=== PATIENT | male | born 1995 | race Two or more races ===

== ENCOUNTER 2020-10-03 09:40 | Emergency (ER) | payer OTHER, SELFPAY ==
[2020-10-03 09:53] VITALS: BP 134/79; PULSE 102; RESP 16; TEMP 36.9; O2SAT 97; BMI 27.3
--- NOTE | 2020-10-03 10:13 | ED.URI ---
HPI - URI/Sore Throat General Chief Complaint: Upper Respiratory Symptoms Stated Complaint: FLU LIKE Time Seen by Provider: 10/03/20 09:51 Source: patient Mode of arrival: ambulatory Limitations: no limitations History of Present Illness HPI Narrative: 25yoM c No Sig PMHx presenting to the ED c c/o fevers up to 100.3, dry cough and body aches since Wednesday. Reports he works at [employer]. No known COVID or flu like exposure. Denies recent travel. Denies any other symptoms complaints or concerns at this time. Related Data Previous Rx's Medication Instructions Recorded acetaminophen [Tylenol] 650 mg PO Q6H PRN #10 tab 10/03/20 azithromycin See Rx Instructions PO .COMPLEX #3 10/03/20 tab cyclobenzaprine 10 mg PO TID PRN #10 tab 10/03/20 Allergies Allergy/AdvReac Type Severity Reaction Status Date / Time SEAFOOD Allergy Unknown ANAPHYLAXIS Uncoded 08/08/20 17:27 Review of Systems Review of Systems: Constitutional : + Fever, + Chills, + fatigue, + Malaise ENT/Mouth : No sore throat, No runny nose Eyes: No Discharge Cardiovascular : No Chest Pain, No SOB Respiratory : + Cough, No Sputum, No Wheezing, No Smoke Exposure, No Dyspnea Gastrointestinal : No Nausea, No Vomiting, No Diarrhea Genitourinary : No irregular bleeding, No Dysuria, No Urinary Frequency, No Hematuria, No Urinary Incontinence, No Urgency, No Flank Pain, Musculoskeletal : + Myalgia Skin : No rash Neuro : No Headache Yes all other systems are reviewed and are negative [facility] Past Medical History Attestation statement: The following information was validated with the patient. Social History Social History Advance Directives: No Advance Directives Information Provided: Yes Physical Exam Vital Signs: Vital Signs: Last Vital Signs Temp 98.4 F 10/03/20 09:53 Pulse 102 H 10/03/20 09:53 Resp 16 10/03/20 09:53 BP 134/79 10/03/20 09:53 Pulse Ox 97 10/03/20 09:53 Body Mass Index 27.3 vital signs have been reviewed as normal and appeared to be correct. Blood pressure normal. Heart rate tachycardic. Respiration rate normal. Temperature normal. Oxygen saturation normal. Appearance: Alert. Oriented X3. No acute distress. Head: Normal external exam. Eyes: PERRLA. EOMI. Conjunctiva and sclera normal. Eyelids normal. ENT: EAC normal. TM's Normal. Pharynx normal. Uvula midline. Moist mucous membranes. . Neck: Normal inspection. Neck supple. FROM. Thyroid Normal. No meningeal signs. CVS: Normal heart rate and rhythm. Heart sound normal. No murmurs noted. Pulses normal throughout. Respiratory: No respiratory distress. Painless inspiration. Breath sounds normal. No wheezes/rales/rhonchi noted. Chest nontender. No accessory muscle usage noted or decreased air movement noted. Back: Full range of motion noted. Skin: Skin warm and dry. Normal skin color. Normal skin turgor. No rashes/lesions/lacerations noted. Extremities: Extremities exhibit normal range of motion. Extremities nontender. Neuro: Oriented X 3. No motor deficit. No sensory deficit. Reflexes normal. MDM - URI/Sore Throat Medical Records Attestation: I reviewed the patient's medical records. Discharge Plan Discharge Clinical Impression: Upper respiratory infection Patient Disposition: Home, Self-Care Instructions: Upper Respiratory Infection (ED), COVID-19 (Coronavirus Disease 2019) (ED) Additional Instructions: Based on your symptoms and history we have sent a COVID-19. Although your RESULT IS PENDING at this time. RESULTS should return within 72 hours. At this time you will be contacted with either NEGATIVE OR POSITIVE results. -Please wait until we contact you for your results. At this time you will be okay for discharge. Please plan for self quarantine for up to 14 days. Do not expose yourself to others. You may not go to work. If testing does come back negative you may return to activities as long as you are no longer having any symptoms for at least 3 days. Please continue to follow cold instructions and wash your hands frequently. You may take Tylenol as directed on the bottle for pain or fever. Patient seen in the emergency department on 10/03/2020 and should be excused from work until negative test results AND until 72 hours without any symptoms AND at least 10 days have passed since symptoms first appeared or since last exposure to COVID-19 positive patient CDC Guidelines for home isolation: - Stay away from others - WEAR A MASK if you are sick AND STAY HOME - Cover your mouth and nose with a tissue when you cough or sneeze. Dispose of tissues in a lined trash can and wash your hands immediately with soap and water for at least 20 seconds. If soap and water are not available, clean hands with alcohol-based hand shipbuilding draftsperson that contains at least 60% alcohol. - Clean your hands often with soap and water for at least 20 seconds - Avoid touching your eyes, nose and mouth with unwashed hands - Do not share dishes, drinking glasses, cups, eating utensils, towels, or bedding with other people in your home. After using these items, wash them thoroughly with soap and water or put in the hydraulic operator. - Clean high-touch surfaces in your isolation area ( sick room and bathroom) every day; let a caregiver clean and disinfect high-touch surfaces in other areas of the home. Clean the area or item with soap and water or another detergent if it is dirty. Then, use a household disinfectant. - Limit contact with pets and animals: If you must care for a pet, wash your hands before and after interacting with them). Prescriptions: New azithromycin 500 mg tablet See Rx Instructions PO .COMPLEX Qty: 3 RF: 0 acetaminophen [Tylenol] 325 mg tablet 650 mg PO Q6H PRN (Reason: fever or pain) Qty: 10 RF: 0 cyclobenzaprine 10 mg tablet 10 mg PO TID PRN (Reason: muscle spasm) Qty: 10 RF: 0 Referrals: [facility] [Primary Care Provider] - 2 days Stand Alone Forms: Work/School Release Print Language: Romanian
[2020-10-03] MEDS: Acetaminophen 325 MG TABLET 975 MG PO (10:20)
[2020-10-03 11:02] LABS: Influenza A PCR NEGATIVE (Negative); Influenza B PCR NEGATIVE (Negative); Resp Syncy Virus RNA Qual PCR NEGATIVE (Negative); SARS COV2 PCR INHOUSE NEGATIVE (Negative)
== END 2020-10-03 10:34 | disposition home or self-care (01) ==
PROVIDERS: Physician Assistant Medical; Emergency Provider Emergency Medicine
DX: J06.9 Acute upper respiratory infection, unspecified (principal); R50.9 Fever, unspecified; Z79.899 Other long term (current) drug therapy; Z20.828 Contact with and (suspected) exposure to other viral communicable diseases
CPT/HCPCS: 0241U; 99283

== ENCOUNTER 2020-12-17 09:42 | Outpatient (REF) | payer OTHER, SELFPAY ==
[2020-12-17 10:32] LABS: Anion Gap 11 (12-20); Blood Urea Nitrogen 15 mg/dL (9-16); Calcium 8.6 mg/dL (8.4-10.2); Carbon Dioxide 28 mmol/L (22-29); Chloride 106 mmol/L (96-108); Estimated Glomerular Filt Rate > 60; Glucose Random 106 mg/dL (60-115); Sodium 141 mmol/L (135-145)
== END 2020-12-17 09:43 | disposition home or self-care (01) ==
LOC: HO.10HDL 09:42
PROVIDERS: Visit Provider Internal Medicine
DX: J45.909 Unspecified asthma, uncomplicated (principal); Z83.3 Family history of diabetes mellitus
CPT/HCPCS: 36415; 80048

== ENCOUNTER 2021-09-21 15:29 | Emergency (ER) | payer OTHER, SELFPAY ==
--- NOTE | ~2021-09-21 | CT_ITS ---
EXAMINATION: CT ABDOMEN AND PELVIS WITHOUT CONTRAST CLINICAL INFORMATION: Left flank pain. Hematuria. Evaluate for a renal stone. COMPARISON: Most recent CT abdomen/pelvis dated 02/10/2020. TECHNIQUE: Multidetector volumetric imaging was performed from the superior aspect of the liver through the pubic symphysis. Sagittal and coronal reformatted images were obtained on the technologist's workstation. This CT examination was performed using dose optimization techniques as appropriate, variously including the following: *Automated exposure control. *Adjustment of mA and/or kV according to patient size (this includes techniques or standardized protocols for targeted exams where dose is matched to indication/reason for exam; i.e. extremities or head). *Use of iterative reconstruction technique. DLP: 583 mGy-cm FINDINGS: LUNG BASES: The visualized lung bases are unremarkable. LIVER, GALLBLADDER, AND BILIARY TREE: The liver is normal in size, shape, and attenuation. No focal hepatic lesion or biliary ductal dilatation is present. The gallbladder is unremarkable with no evidence of radiopaque gallstones, gallbladder wall thickening, or obvious pericholecystic inflammatory changes. PANCREAS: Unremarkable. SPLEEN: Unremarkable. ADRENAL GLANDS: Unremarkable. KIDNEYS AND URETERS: The kidneys are normal in size, shape, and attenuation. There is a distal left ureteral stone measuring up to 0.5 x 0.4 cm and approximately 645 Hounsfield units. This is located just proximal to the left ureterovesicular junction. There is mild proximal hydroureteronephrosis with adjacent periureteral and perinephric stranding. There are multiple additional bilateral renal stones measuring up to 0.3 cm within the upper pole of the left kidney and 0.1 cm within the right kidney. No right-sided ureteral stone. No right-sided hydronephrosis or hydroureter. BLADDER: Unremarkable. GASTROINTESTINAL TRACT: There are a few scattered sigmoid colon diverticula. No evidence of acute diverticulitis. No bowel wall thickening or associated inflammatory change. No small or large bowel obstruction. Unremarkable appendix. PERITONEAL CAVITY: No intra-abdominal free air or free fluid. No intra-abdominal mass or organized fluid collection/abscess formation. ABDOMINAL WALL: No significant hernia is appreciated. LYMPH NODES: No significant lymphadenopathy. VASCULAR: Unremarkable. PELVIC VISCERA: The prostate and seminal vesicles are unremarkable. OSSEOUS STRUCTURES: Unremarkable. CT/CT abdomen pelvis wo con IMPRESSION: 1. Distal left ureteral stone just proximal to the ureterovesicular junction measuring up to 0.5 cm. Mild proximal hydroureteronephrosis with adjacent periureteral and perinephric stranding. 2. Multiple additional bilateral renal stones. No right-sided ureteral stone. No right-sided hydronephrosis or hydroureter. Unremarkable urinary bladder. 3. Minimal diverticulosis without evidence of acute diverticulitis. No small or large bowel obstruction. Unremarkable appendix.
[2021-09-21 16:04] VITALS: BP 131/80; PULSE 90; RESP 18; TEMP 36.8; O2SAT 98; BMI 27.3
[2021-09-21 16:31] LABS: MANUAL DIFF FLAG NO
[2021-09-21 16:34] LABS: Basophils Percent Auto 0.3 % (0-2); Eosinophils Absolute Auto 0.1 X10*3/uL (0.0-0.4); Hematocrit 40.4 % (42.0-52.0); Hemoglobin 13.5 g/dl (14.0-18.0); Imm Gran Abs Auto 0.01 X10*3/uL (0.00-0.03); Imm Gran Pct Auto 0.2 % (0.0-0.4); Lymphocytes Absolute Auto 1.5 X10*3/uL (1.2-4.9); Lymphocytes Percent Auto 25.9 % (20-40); Mean Corpuscular HGB Conc 33.4 g/dl (31.0-36.0); Mean Corpuscular Hemoglobin 29.2 pg (27.0-33.0); Mean Corpuscular Volume 87.3 fL (80.0-98.0); Mean Platelet Volume 9.6 fL (9.4-12.4); Monocytes Absolute Auto 0.4 X10*3/uL (0.1-1.2); Monocytes Percent Auto 7.3 % (2-11); Neutrophils Absolute Auto 3.84 x10*3/uL (2.0-8.3); Neutrophils Percent Auto 65.3 % (45-73); Platelet Count 235 X10*3/uL (160-400); Red Blood Count 4.63 X10*6/uL (4.60-5.80); Red Cell Distribution Width 13.1 % (11.0-16.0); White Blood Count 5.9 X10*3/uL (4.8-10.8)
[2021-09-21 16:36] LABS: Appearance Urine CLEAR; Color Urine YELLOW; Glucose Urine UA NEG (NEG); Leukocyte Esterase Urine NEG (NEG); Nitrite Urine NEG (NEG); Specific Gravity - Urine 1.015 (1.005-1.025); UACC Culture Trigger NO; Urine Blood 2+ (NEG); Urine Ketones NEG (NEG); Urine Protein NEG (NEG-TRACE)
[2021-09-21 16:47] LABS: Mucus Urine 2+ /LPF; Squamous Epithelial Cell Urine TRACE /LPF; WBC Urine 0-2 /HPF (0-4)
[2021-09-21 17:09] LABS: Alanine Aminotransferase 20 U/L (0-40); Albumin Level 4.3 g/dL (3.5-5.0); Alkaline Phosphatase 53 U/L (39-117); Anion Gap 14 (12-20); Aspartate Amino Transferase 17 U/L (5-37); Bilirubin Total 0.3 mg/dL (0.0-1.0); Blood Urea Nitrogen 10 mg/dL (9-16); Calcium 8.9 mg/dL (8.4-10.2); Carbon Dioxide 26 mmol/L (22-29); Chloride 107 mmol/L (96-108); Creatinine Clr Calc Pharmacy 100.2; Estimated Glomerular Filt Rate > 60; Glucose Random 100 mg/dL (60-115); Potassium 3.8 mmol/L (3.3-5.1); Sodium 143 mmol/L (135-145); Total Protein 7.1 g/dL (6.5-8.0)
--- NOTE | 2021-09-21 18:26 | ED_ITS ---
HPI - Abdominal Pain General Chief Complaint: Abdominal Pain Stated Complaint: abd pain radiating to the back Time Seen by Provider: 09/21/21 18:25 Source: patient Mode of arrival: ambulatory Limitations: no limitations History of Present Illness HPI narrative: 26-year-old male came in for evaluation of left flank pain. Pain started this morning, localized to the left Flattening area radiates down to the left groin area, pain is intermittent, moderate 7/10, associated with his dysuria and frequency urination, no relieving factor, no aggravating factor, patient had similar pain in the past and was told was a kidney stone. Patient declines any nausea, or vomiting. Related Data Previous Rx's Medication Instructions Recorded acetaminophen 325 mg tablet 650 mg PO Q6H PRN #10 tab 10/03/20 (Tylenol) azithromycin 500 mg tablet See Rx Instructions PO .COMPLEX #3 10/03/20 tab cyclobenzaprine 10 mg tablet 10 mg PO TID PRN #10 tab 10/03/20 oxycodone 5 mg tablet 5 mg PO TID PRN #10 tab 09/21/21 Allergies Allergy/AdvReac Type Severity Reaction Status Date / Time SEAFOOD Allergy Unknown ANAPHYLAXIS Uncoded 08/08/20 17:27 Review of Systems Review of Systems All other systems are reviewed and are negative Constitutional: Reports as per HPI and Reports no additional constitutional complaints Eyes: Reports as per HPI and Reports no additional eye complaints Reports system reviewed and no additional complaints, except as documented Cardiovascular: Reports as per HPI and Reports no additional cardiovascular complaints Respiratory: Reports as per HPI and Reports no additional respiratory complaints Gastrointestinal: Reports as per HPI and Reports no additional gastrointestinal complaints Genitourinary: Reports no additional female genitourinary complaints Musculoskeletal: Reports no additional musculoskeletal complaints Skin/Breast: Reports system reviewed and no additional complaints, except as docu Psychiatric: Reports no additional psychiatric complaints Endocrine: Reports no additional endocrine complaints Hematologic/Lymphatic: Reports no additional hematologic/lymphatic complaints Allergic/Immunologic: Reports no additional allergic/immunologic complaints Reports system reviewed and no additional complaints, except as documented and Reports Abnormal speech present Physical Exam Vital Signs: Vital Signs: Last Vital Signs Temp 98.2 F 09/21/21 16:04 Pulse 90 09/21/21 16:04 Resp 18 09/21/21 16:04 BP 131/80 09/21/21 16:04 Pulse Ox 98 09/21/21 16:04 Body Mass Index 27.3 Vital signs have been reviewed as appeared to be correct. Blood pressure n ormal. Heart rate normal. Respiration rate normal. Temperature normal. Oxygen saturation normal. Appearance: Alert. Oriented X3. No acute distress. Head: Normal external exam. Normocephalic. Atraumatic. No Neal signs noted. No raccoon eyes noted Eyes: PERRLA. EOMI. Conjunctiva and sclera normal. Eyelids normal. ENT: TM's Normal. Pharynx normal. Uvula midline. Moist mucous membranes. No trismus noted. No drooling noted. No muffled voice noted. Neck: Normal inspection. Neck supple. FROM. No adenopathy. Thyroid Normal. No meningeal signs. No neck mass noted. CVS: Normal heart rate and rhythm. Heart sound normal. No murmurs noted. Pulses normal throughout. Respiratory: No respiratory distress. Painless inspiration. Breath sounds normal. No wheezes/rales/rhonchi noted. Chest nontender. No accessory muscle usage noted or decreased air movement noted. Abdomen: Soft and nontender. Bowel sounds normal in all 4 quadrants. No distention noted. No organomegaly noted. No visible injury noted. Back: Left CVA tenderness. Full range of motion noted. Skin: Skin warm and dry. Normal skin color. Normal skin turgor. No rashes/lesions/lacerations noted. Extremities: No lower extremity edema. Extremities exhibit normal range of motion. Extremities nontender. Neuro: Oriented X 3. Cranial nerve exam: II-XII are grossly intact No motor deficit. No sensory deficit. Reflexes normal. Course Course Course Narrative: Assessment and plan. [age] year old male came in with left flank pain, physical exam and CT of the abdomen showed 5 mm stone just proximal to the left UVJ with hydronephrosis, patient was instructed to drink plenty of fluid intake pain medication and follow-up with Dr. Stevens as outpatient. MDM - Abdominal Pain Lab Data Attestation: I reviewed the patient's lab results. Result diagrams: 09/21/21 16:27 09/21/21 16:27 Labs: Lab Results 09/21/21 09/21/21 09/21/21 Range/Units 16:27 16:27 16:27 WBC 5.9 (4.8-10.8) X10*3/uL RBC 4.63 (4.60-5.80) X10*6/uL Hgb 13.5 L (14.0-18.0) g/dl Hct 40.4 L (42.0-52.0) % MCV 87.3 (80.0-98.0) fL MCH 29.2 (27.0-33.0) pg MCHC 33.4 (31.0-36.0) g/dl RDW 13.1 (11.0-16.0) % Plt Count 235 (160-400) X10*3/uL MPV 9.6 (9.4-12.4) fL Immature Gran % (Auto) 0.2 (0.0-0.4) % Neut % (Auto) 65.3 (45-73) % Lymph % (Auto) 25.9 (20-40) % [place] % (Auto) 7.3 (2-11) % Eos % (Auto) 1.0 (0-4) % Baso % (Auto) 0.3 (0-2) % Lymph # (Auto) 1.5 (1.2-4.9) X10*3/uL [place] # (Auto) 0.4 (0.1-1.2) X10*3/uL Eos # (Auto) 0.1 (0.0-0.4) X10*3/uL Baso # (Auto) 0.0 (0.0-0.2) X10*3/uL Abs Immat Gran (auto) 0.01 (0.00-0.03) X10*3/uL Absolute Neuts (auto) 3.84 (2.0-8.3) x10*3/uL Absolute Nucleated RBC 0.000 (0.0-0.012) X10*3/uL Nucleated RBC % (auto) 0.0 (0.0-0.2) /100WBC Sodium 143 (135-145) mmol/L Potassium 3.8 (3.3-5.1) mmol/L Chloride 107 (96-108) mmol/L Carbon Dioxide 26 (22-29) mmol/L Anion Gap 14 (12-20) BUN 10 (9-16) mg/dL Creatinine 1.08 (0.5-1.4) mg/dL Estim Creat Clear Calc 100.2 Estimated GFR > 60 Random Glucose 100 (60-115) mg/dL Calcium 8.9 (8.4-10.2) mg/dL Total Bilirubin 0.3 (0.0-1.0) mg/dL AST 17 (5-37) U/L ALT 20 (0-40) U/L Alkaline Phosphatase 53 (39-117) U/L Total Protein 7.1 (6.5-8.0) g/dL Albumin 4.3 (3.5-5.0) g/dL Urine Color YELLOW Urine Appearance CLEAR Urine pH 6.0 (5.0-8.0) Ur Specific [place] 1.015 (1.005-1.025) Urine Protein NEG (NEG-TRACE) MG/DL Urine Glucose (UA) NEG (NEG) MG/DL Urine Ketones NEG (NEG) MG/DL Urine Blood 2+ H (NEG) Urine Nitrite NEG (NEG) Ur Leukocyte Esterase NEG (NEG) Urine RBC 5-9 H (0) /HPF Urine WBC 0-2 (0-4) /HPF Ur Squamous Epith Cells TRACE /LPF Urine Bacteria NONE /LPF Urine Mucus 2+ /LPF Imaging Data CT scan - abdomen: Radiologist's impression: 1. Distal left ureteral stone just proximal to the ureterovesicular junction measuring up to 0.5 cm. Mild proximal hydroureteronephrosis with adjacent periureteral and perinephric stranding. ? 2. Multiple additional bilateral renal stones. No right-sided ureteral stone. No right-sided hydronephrosis or hydroureter. Unremarkable urinary bladder. ? 3. Minimal diverticulosis without evidence of acute diverticulitis. No small or large bowel obstruction. Unremarkable appendix.? Discharge Plan Discharge Clinical Impression: Abdominal pain, Kidney stone on left side, Left ureteral stone Patient Disposition: Home, Self-Care Instructions: Ureteral Stones (ED) Prescriptions: New oxycodone 5 mg tablet 5 mg PO TID PRN (Reason: pain) Qty: 10 RF: 0 No Action azithromycin 500 mg tablet See Rx Instructions PO .COMPLEX Qty: 3 RF: 0 acetaminophen [Tylenol] 325 mg tablet 650 mg PO Q6H PRN (Reason: fever or pain) Qty: 10 RF: 0 cyclobenzaprine 10 mg tablet 10 mg PO TID PRN (Reason: muscle spasm) Qty: 10 RF: 0 Referrals: Eduard Stevens MD [Physician] - 2 days [facility] Social History Social History Advance Directives: No Advance Directives Information Provided: No
[2021-09-21 19:49] VITALS: BP 132/69; PULSE 66; RESP 16; TEMP 36.6; O2SAT 96
== END 2021-09-21 20:53 | disposition home or self-care (01) ==
PROVIDERS: Emergency Provider Emergency Medicine; PCP Internal Medicine
DX: N13.2 Hydronephrosis with renal and ureteral calculous obstruction (principal)
CPT/HCPCS: 36415; 74176; 80053; 81001; 85025; 99284

== ENCOUNTER 2022-06-15 17:12 | Emergency (ER) | payer OTHER, SELFPAY ==
--- NOTE | ~2022-06-15 | CT_ITS ---
EXAMINATION: CT ABDOMEN AND PELVIS WITHOUT CONTRAST CLINICAL INFORMATION: Right-sided flank pain COMPARISON: CT abdomen pelvis 09/21/2021 TECHNIQUE: Multidetector volumetric imaging was performed from the superior aspect of the liver through the pubic symphysis. Sagittal and coronal reformatted images were obtained on the technologist's workstation. This CT examination was performed using dose optimization techniques as appropriate, variously including the following: *Automated exposure control *Adjustment of mA and/or kV according to patient size (this includes techniques or standardized protocols for targeted exams where dose is matched to indication/reason for exam; i.e. extremities or head) *Use of iterative reconstruction technique DLP: 676 mGy-cm FINDINGS: LUNG BASES: The visualized lung bases are unremarkable. LIVER, GALLBLADDER, AND BILIARY TREE: The liver is normal in size, shape, and attenuation. No focal hepatic lesion or biliary ductal dilatation is present. The gallbladder is unremarkable with no evidence of radiopaque gallstones, gallbladder wall thickening, or obvious pericholecystic inflammatory changes. PANCREAS: Unremarkable. SPLEEN: Unremarkable. ADRENAL GLANDS: Unremarkable. KIDNEYS AND URETERS: Right: There may be a tiny punctate barely perceptible right nonobstructing renal calculus seen (4:295). No other right-sided calculi are seen. No right-sided hydronephrosis. No right renal masses. Left kidney: Again seen are multiple intrarenal left calculi with at least 4 calculi the largest measuring about 4 mm in size. No left-sided hydronephrosis is present. No left-sided renal masses are seen. BLADDER: Unremarkable. GASTROINTESTINAL TRACT: The small and large bowel are unremarkable. The appendix is unremarkable. ABDOMINAL WALL: No significant hernia is appreciated. LYMPH NODES: Normal. VASCULAR: Unremarkable. The right renal vein is retroaortic. PELVIC VISCERA: Prostate and seminal vesicles unremarkable OSSEOUS STRUCTURES: Unremarkable. CT/CT abdomen pelvis wo con IMPRESSION: 1. An etiology for the patient's right flank pain has not been found. No right-sided renal calculi or hydronephrosis is seen. 2. Left-sided renal calculi are present. The previously noted left-sided hydronephrosis caused by the distal ureteral calculus is no longer present. Fleischner guidelines were followed.
[2022-06-15 17:24] VITALS: BP 118/81; PULSE 76; RESP 18; TEMP 37.1; O2SAT 97; BMI 30.4
[2022-06-15 17:34] LABS: MANUAL DIFF FLAG NO
[2022-06-15 17:36] LABS: Basophils Percent Auto 0.2 % (0-2); Eosinophils Percent Auto 0.8 % (0-4); Hematocrit 40.2 % (42.0-52.0); Hemoglobin 13.4 g/dl (14.0-18.0); Imm Gran Abs Auto 0.02 X10*3/uL (0.00-0.03); Imm Gran Pct Auto 0.4 % (0.0-0.4); Lymphocytes Absolute Auto 1.7 X10*3/uL (1.2-4.9); Mean Corpuscular HGB Conc 33.3 g/dl (31.0-36.0); Mean Corpuscular Hemoglobin 28.9 pg (27.0-33.0); Mean Corpuscular Volume 86.8 fL (80.0-98.0); Mean Platelet Volume 9.7 fL (9.4-12.4); Monocytes Absolute Auto 0.3 X10*3/uL (0.1-1.2); Monocytes Percent Auto 6.7 % (2-11); Neutrophils Absolute Auto 2.7 x10*3/uL (2.0-8.3); Neutrophils Percent Auto 56.9 % (45-73); Platelet Count 261 X10*3/uL (160-400); Red Blood Count 4.63 X10*6/uL (4.60-5.80); Red Cell Distribution Width 12.8 % (11.0-16.0); White Blood Count 4.8 X10*3/uL (4.8-10.8)
[2022-06-15 17:53] LABS: Alanine Aminotransferase 23 U/L (0-40); Albumin Level 4.2 g/dL (3.5-5.0); Alkaline Phosphatase 55 U/L (39-117); Anion Gap 11 (12-20); Aspartate Amino Transferase 16 U/L (5-37); Bilirubin Direct < 0.2 mg/dL (0.0-0.5); Bilirubin Total 0.4 mg/dL (0.0-1.0); Blood Urea Nitrogen 14 mg/dL (9-16); Calcium 9.1 mg/dL (8.4-10.2); Carbon Dioxide 28 mmol/L (22-29); Chloride 105 mmol/L (96-108); Creatinine Clr Calc Pharmacy 122.4; Estimated Glomerular Filt Rate > 60; Glucose Random 139 mg/dL (60-115); Potassium 3.6 mmol/L (3.3-5.1); Sodium 140 mmol/L (135-145); Total Protein 7.4 g/dL (6.5-8.0)
--- NOTE | 2022-06-15 20:58 | ED.GENADULT ---
HPI - General Adult General Chief complaint: Abdominal Pain Stated complaint: R side abd pain Time Seen by Provider: 06/15/22 20:57 Source: patient Mode of arrival: ambulatory Limitations: no limitations History of Present Illness HPI narrative: Patient is a 26 year old male presenting to the emergency department today with right sided flank pain. Patient states that he has had intermittent right sided flank pain. Patient states that he has a history of kidney stones and it feels a lot like that. Patient denies any current dizziness, lightheadedness, abdominal pain, nausea, vomiting, fever, chills, blurry vision, double vision, loss of vision, chest pain, difficulty breathing, shortness of breath, back pain, night sweats, pain with urination, increased urinary frequency, increased urinary urgency, blood in his urine or stool, syncope or a near syncopal episode, recent trauma or falls, bowel incontinence, bladder incontinence, bowel retention, bladder retention, or any other complaints at this time. Onset (ago): day(s) (1) Location: abdomen Severity: mild Severity scale (1-10): 2 Pain Consistency: intermittent Relieving factors: none Exacerbating factors: none Associated symptoms: denies other symptoms Treatments prior to arrival: none Related Data Previous Rx's Medication Instructions Recorded acetaminophen 325 mg tablet 650 mg PO Q6H PRN fever or pain 10/03/20 (Tylenol) #10 tabs azithromycin 500 mg tablet See Rx Instructions PO .COMPLEX #3 10/03/20 tabs cyclobenzaprine 10 mg tablet 10 mg PO TID PRN muscle spasm #10 10/03/20 tabs oxycodone 5 mg tablet 5 mg PO TID PRN pain #10 tabs 09/21/21 oxycodone-acetaminophen 5 mg-325 1 tab PO TID PRN pain #14 tabs 09/21/21 mg tablet (Percocet) prednisone 20 mg tablet 20 mg PO BID #10 tabs 09/21/21 tamsulosin 0.4 mg capsule (Flomax) 0.4 mg PO DAILY #5 caps 09/21/21 Allergies Allergy/AdvReac Type Severity Reaction Status Date / Time SEAFOOD Allergy Unknown ANAPHYLAXIS Uncoded 08/08/20 17:27 Review of Systems Constitutional: Constitutional: Reports no additional constitutional complaints, Denies chills, Denies fever(s) and Denies night sweats Eyes: Eyes: Reports no additional eye complaints, Denies blurry vision, Denies change in vision, Denies diplopia, Denies eye discharge, Denies loss of vision and Denies eye pain ENT: Denies dizziness Cardiovascular: Cardiovascular: Reports no additional cardiovascular complaints, Denies chest pain, Denies lightheadedness, Denies Loss of Consciousness and Denies dyspnea Respiratory: Respiratory: Reports no additional respiratory complaints and Denies dyspnea Gastrointestinal: Gastrointestinal: Reports no additional gastrointestinal complaints, Reports abdominal pain (right flank), Denies melena, Denies hematochezia, Denies change in bowel habits and Denies change in stool character Genitourinary: Genitourinary: Reports no additional male genitourinary complaints, Denies hematuria, Denies oliguria, Denies difficulty urinating, Denies dysuria, Denies urinary frequency, Denies urinary hesitancy, Denies urinary incontinence and Denies urinary urgency Musculoskeletal: Musculoskeletal: Reports no additional musculoskeletal complaints, Denies numbness and Denies tingling Neurologic: Denies dizziness, Denies loss of vision, Denies numbness and Denies tingling Psychiatric: Psychiatric: Reports no additional psychiatric complaints Endocrine: Endocrine: Reports no additional endocrine complaints Hematologic/Lymphatic: Hematologic/Lymphatic: Reports no additional hematologic/lymphatic complaints Allergic/Immunologic: Allergic/Immunologic: Reports no additional allergic/immunologic complaints PMFSH Past Medical History Attestation statement: The following information was validated with the patient. Source: old records reviewed Social History Social History Advance Directives: No Advance Directives Information Provided: No Physical Exam ED Vital Signs: Vital Signs - 24 hr 06/15/22 17:24 06/15/22 21:06 Temperature 98.7 F 98.1 F Pulse Rate 76 76 Respiratory Rate 18 16 Blood Pressure 118/81 128/87 Pulse Oximetry 97 98 Oxygen Delivery Method Room Air Room Air BMI result Body Mass Index 30.4 Const General: cooperative, no acute distress, alert and awake Nutritional Appearance: well nourished Orientation/consciousness: patient oriented x3 Limitations: no limitations HENMT Head: Yes normal to inspection and Yes atraumatic Ears: hearing grossly normal bilaterally and external ears normal General nose exam: Normal external nose present, no nasal discharge noted and no epistaxis Face and sinus: Yes normal facial exam, No abrasion and No laceration Mouth: Normal oral and palatal mucosa present, no drooling and no muffled voice Eyes General: appearance normal, both eyes and all related structures Periorbital: periorbital findings normal Eyelids: Yes eyelids normal Conjunctivae: conjunctivae normal Pupils: Equal, round and reactive pupils present EOM: EOMs intact bilaterally Neck Neck: Yes normal visual inspection, Yes full ROM and Yes no lymphadenopathy Chest Chest palpation & inspection: normal inspection of the chest Resp Effort & Inspection: normal respiratory effort and able to speak in complete sentences Auscultation: clear to auscultation bilaterally Cardio Rate: regular rate Rhythm: regular rhythm GI Inspection: Yes normal to inspection Palpation (GI): Soft to palpation, not firm, nontender, no guarding and not rigid General: Yes no CVA tenderness Back/Spine/Pelvis Back: no CVA tenderness Neuro General: patient oriented x3 and moves all extremities Cranial nerves: Yes Equal, round and reactive pupils present Cognition (Neuro): normal cognition Motor exam (neuro): 5/5 motor strength present throughout Sensory Exam: Normal double simultaneous stimulation for sensation Coordination: [id number] test normal Extrem General: Yes normal to inspection, Yes full ROM and Yes capillary refill normal Psych Appearance: grossly normal Mental Status: mental status grossly normal Affect: normal affect Attitude: cooperative Thought process: Normal thought process present Thought content: Normal thought content present Insight: Good insight present (Psych) Medical Decision Making MDM Narrative Medical decision making narrative: Patient is a 26 year old male presenting to the emergency department today with intermittent right flank pain. Patient's physical exam was unremarkable. Patient's blood work was unremarkable. Patient's urine showed no acute process. Patient's CT abdomen showed no acute process. I explained my physical exam findings as well as all test results to the patient. I answered all questions asked by the patient. I stressed the importance of the patient taking his medication as prescribed. I stressed the importance of the patient following up with his primary care provider. I stressed the importance of the patient returning to the emergency department immediately if his symptoms were to worsen or if he were to develop any dizziness, shortness of breath, difficulty breathing, chest pain, blurry vision, loss of vision, nausea, vomiting, abdominal pain, fever, chills, back pain, or any other complaints. Patient verbalized agreement and understanding with this treatment plan and discharge. Differential Diagnosis Differential Diagnosis: renal calculi Medical Records Medical records reviewed: Yes I reviewed the patient's medical records. Lab Data Lab results reviewed: Yes I reviewed the patient's lab results. Result diagrams: 06/15/22 17:30 06/15/22 17:30 Labs: Lab Results 06/15/22 06/15/22 06/15/22 Range/Units 17:30 17:30 21:08 WBC 4.8 (4.8-10.8) X10*3/uL RBC 4.63 (4.60-5.80) X10*6/uL Hgb 13.4 L (14.0-18.0) g/dl Hct 40.2 L (42.0-52.0) % MCV 86.8 (80.0-98.0) fL MCH 28.9 (27.0-33.0) pg MCHC 33.3 (31.0-36.0) g/dl RDW 12.8 (11.0-16.0) % Plt Count 261 (160-400) X10*3/uL MPV 9.7 (9.4-12.4) fL Immature Gran % (Auto) 0.4 (0.0-0.4) % Neut % (Auto) 56.9 (45-73) % Lymph % (Auto) 35.0 (20-40) % [place] % (Auto) 6.7 (2-11) % Eos % (Auto) 0.8 (0-4) % Baso % (Auto) 0.2 (0-2) % Lymph # (Auto) 1.7 (1.2-4.9) X10*3/uL [place] # (Auto) 0.3 (0.1-1.2) X10*3/uL Eos # (Auto) 0.0 (0.0-0.4) X10*3/uL Baso # (Auto) 0.0 (0.0-0.2) X10*3/uL Abs Immat Gran (auto) 0.02 (0.00-0.03) X10*3/uL Absolute Neuts (auto) 2.7 (2.0-8.3) x10*3/uL Absolute Nucleated RBC 0.000 (0.0-0.012) X10*3/uL Nucleated RBC % (auto) 0.0 (0.0-0.2) /100WBC Sodium 140 (135-145) mmol/L Potassium 3.6 (3.3-5.1) mmol/L Chloride 105 (96-108) mmol/L Carbon Dioxide 28 (22-29) mmol/L Anion Gap 11 L (12-20) BUN 14 (9-16) mg/dL Creatinine 1.00 (0.5-1.4) mg/dL Estim Creat Clear Calc 122.4 Estimated GFR > 60 Random Glucose 139 H D (60-115) mg/dL Calcium 9.1 (8.4-10.2) mg/dL Total Bilirubin 0.4 (0.0-1.0) mg/dL Direct Bilirubin < 0.2 (0.0-0.5) mg/dL AST 16 (5-37) U/L ALT 23 (0-40) U/L Alkaline Phosphatase 55 (39-117) U/L Total Protein 7.4 (6.5-8.0) g/dL Albumin 4.2 (3.5-5.0) g/dL Urine Color YELLOW Urine Appearance CLEAR Urine pH 6.0 (5.0-8.0) Ur Specific [place] 1.025 (1.005-1.025) Urine Protein NEG (NEG-TRACE) MG/DL Urine Glucose (UA) NEG (NEG) MG/DL Urine Ketones NEG (NEG) MG/DL Urine Blood TRACE (NEG) Urine Nitrite NEG (NEG) Ur Leukocyte Esterase NEG (NEG) Urine RBC 0-2 (0) /HPF Urine WBC 0 (0-4) /HPF Ur Squamous Epith Cells NONE /LPF Urine Bacteria TRACE /LPF Imaging Data CT scan - abdomen: Attestation: I personally reviewed and interpreted this imaging study as follows: My impression: No acute process. Radiologist's impression: EXAMINATION: CT ABDOMEN AND PELVIS WITHOUT CONTRAST? CLINICAL INFORMATION: Right-sided flank pain? COMPARISON: CT abdomen pelvis 09/21/2021? TECHNIQUE: Multidetector volumetric imaging was performed from the superior aspect of the liver through the pubic symphysis. Sagittal and coronal reformatted images were obtained on the technologist's workstation.? This CT examination was performed using dose optimization techniques as appropriate, variously including the following: *Automated exposure control *Adjustment of mA and/or kV according to patient size (this includes techniques or standardized protocols for targeted exams where dose is matched to indication/reason for exam; i.e. extremities or head) *Use of iterative reconstruction technique DLP: 676 mGy-cm FINDINGS: LUNG BASES: The visualized lung bases are unremarkable.? LIVER, GALLBLADDER, AND BILIARY TREE: The liver is normal in size, shape, and attenuation. No focal hepatic lesion or biliary ductal dilatation is present. The gallbladder is unremarkable with no evidence of radiopaque gallstones, gallbladder wall thickening, or obvious pericholecystic inflammatory changes.? PANCREAS: Unremarkable.? SPLEEN: Unremarkable.? ADRENAL GLANDS: Unremarkable.? KIDNEYS AND URETERS: Right: There may be a tiny punctate barely perceptible right nonobstructing renal calculus seen (4:295). No other right-sided calculi are seen. No right-sided hydronephrosis. No right renal masses. Left kidney: Again seen are multiple intrarenal left calculi with at least 4 calculi the largest measuring about 4 mm in size. No left-sided hydronephrosis is present. No left-sided renal masses are seen. BLADDER: Unremarkable.? GASTROINTESTINAL TRACT: The small and large bowel are unremarkable. The appendix is unremarkable.? ABDOMINAL WALL: No significant hernia is appreciated.? LYMPH NODES: Normal. VASCULAR: Unremarkable. The right renal vein is retroaortic. PELVIC VISCERA: Prostate and seminal vesicles unremarkable? OSSEOUS STRUCTURES: Unremarkable.? CT/CT abdomen pelvis wo con IMPRESSION: 1.? An etiology for the patient's right flank pain has not been found. No right-sided renal calculi or hydronephrosis is seen. 2.? Left-sided renal calculi are present. The previously noted left-sided hydronephrosis caused by the distal ureteral calculus is no longer present.? ? Fleischner guidelines were followed. Dictated By: Skyler Saucedo MD Signed By: Electronically signed by Skyler Saucedo MD 06/15/22 0196 Discharge Plan Discharge Clinical Impression: Acute flank pain Patient Disposition: Home, Self-Care Instructions: Flank Pain (ED) Additional Instructions: Follow up with your primary care provider and a urologist. Return to the emergency department immediately if your symptoms worsen or if you develop any dizziness, shortness of breath, difficulty breathing, chest pain, blurry vision, loss of vision, nausea, vomiting, abdominal pain, fever, chills, back pain, or any other complaints. Prescriptions: No Action azithromycin 500 mg tablet See Rx Instructions PO .COMPLEX Qty: 3 0RF Rx Instructions: take 500 mg today (day 1), then 250 mg for 4 days (days 2-5) acetaminophen [Tylenol] 325 mg tablet 650 mg PO Q6H PRN (Reason: fever or pain) Qty: 10 0RF cyclobenzaprine 10 mg tablet 10 mg PO TID PRN (Reason: muscle spasm) Qty: 10 0RF oxycodone 5 mg tablet 5 mg PO TID PRN (Reason: pain) Qty: 10 0RF oxycodone-acetaminophen [Percocet] 5-325 mg tablet 1 tab PO TID PRN (Reason: pain) Qty: 14 0RF prednisone 20 mg tablet 20 mg PO BID Qty: 10 0RF tamsulosin [Flomax] 0.4 mg capsule 0.4 mg PO DAILY Qty: 5 0RF [place] [facility] [place] (Call to establish and follow up with a primary care provider. If you already have one, please follow up with them. ) [facility] [place]Provider Group] (Call to establish and follow up with a primary care provider. If you already have one, please follow up with them. ) [facility] [place]Provider Group] (Call to establish and follow up with a primary care provider. If you already have one, please follow up with them. ) Eduard Stevens MD [Physician] - Stand Alone Forms: Work/School Release Interventions: ED Discharge Assessment Last Done: 06/16/22 00:08 Discharge Date/Time: 06/16/22 00:10 Print Language: Thai
[2022-06-15 21:06] VITALS: BP 128/87; PULSE 76; RESP 16; TEMP 36.7; O2SAT 98
[2022-06-15 21:16] LABS: Appearance Urine CLEAR; Color Urine YELLOW; Glucose Urine UA NEG (NEG); Leukocyte Esterase Urine NEG (NEG); Nitrite Urine NEG (NEG); Specific Gravity - Urine 1.025 (1.005-1.025); UACC Culture Trigger NO; Urine Blood TRACE (NEG); Urine Ketones NEG (NEG); Urine Protein NEG (NEG-TRACE)
[2022-06-15 21:25] LABS: Bacteria Urine TRACE /LPF; RBC Urine 0-2 /HPF (0); WBC Urine 0 /HPF (0-4)
--- NOTE | 2022-06-16 00:08 | PC.NURSE ---
I assumed nursing care of Ramsey on his arrival to bed 1. I am discharging him at the same time I a meeting him or the first time. He denies pain. he appears well. He is alert, oriented x 3. he verbalized an understanding of all DC orders and ambulated out of the ED independently and with steady gait.
== END 2022-06-16 00:10 | disposition home or self-care (01) ==
PROVIDERS: Emergency Provider Emergency Medicine; PCP Pediatrics
DX: R10.9 Unspecified abdominal pain (principal); Z79.899 Other long term (current) drug therapy
CPT/HCPCS: 36415; 74176; 80053; 81001; 82248; 85025; 99283; 99284

== ENCOUNTER 2025-03-15 16:52 | Emergency (ER) | payer OTHER, SELFPAY ==
--- NOTE | 2025-03-15 17:10 | ED.ABDPAIN ---
HPI - Abdominal Pain General Chief Complaint: Abdominal Pain Stated Complaint: painful stomach mass Time Seen by Provider: 03/15/25 21:44 Related Data Previous Rx's ?Medication ?Instructions ?Recorded acetaminophen 325 mg tablet 650 mg (2 x 325 mg) PO Q6H PRN 10/03/20 (Tylenol) fever or pain #10 tabs azithromycin 500 mg tablet See Rx Instructions PO .COMPLEX #3 10/03/20 tabs cyclobenzaprine 10 mg tablet 10 mg PO TID PRN muscle spasm #10 10/03/20 tabs oxycodone 5 mg tablet 5 mg PO TID PRN pain #10 tabs 09/21/21 oxycodone-acetaminophen 5 mg-325 1 tab PO TID PRN pain #14 tabs 09/21/21 mg tablet (Percocet) prednisone 20 mg tablet 20 mg PO BID #10 tabs 09/21/21 tamsulosin 0.4 mg capsule (Flomax) 0.4 mg PO DAILY #5 caps 09/21/21 Allergies Allergy/AdvReac Type Severity Reaction Status Date / Time SEAFOOD Allergy Unknown ANAPHYLAXIS Uncoded 03/15/25 17:17 [facility] Social History Social History Advance Directives: No Advance Directives Information Provided: No Do you have a plan to hurt others: No Plan Physical Exam ED Vital Signs: Vital Signs - 24 hr 03/15/25 17:12 03/15/25 21:44 Temperature 98.1 F 98.0 F Pulse Rate 80 84 Respiratory Rate 16 18 Blood Pressure 144/88 H 135/87 Pulse Oximetry 98 97 Oxygen Delivery Method Room Air Room Air BMI result Body Mass Index 34.4 Course Course Course Narrative: This is a Rapid Medical Exam performed in triage by Debra Hampton PA-C. Full HPI, ROS and PE to be performed by primary ED provider. 29 yo M presenting to the ED c/o R sided abdominal bloating & painful lump x yesterday. Denies pain now. Does do heavy lifting at work. denies N/V/D/C PE: abdomen soft, w/mild R periumbilical ttp, no rebound or guarding, no palpable lump Plan: labs, UA Medical Decision Making Lab Data 03/15/25 17:22 03/15/25 17:22 Labs: Lab Results 03/15/25 03/15/25 Range/Units 17:22 17:23 WBC 5.6 (4.8-10.8) X10*3/uL RBC 4.88 (4.60-5.80) X10*6/uL Hgb 13.8 L (14.0-18.0) g/dl Hct 41.4 L (42.0-52.0) % MCV 84.8 (80.0-98.0) fL MCH 28.3 (27.0-33.0) pg MCHC 33.3 (31.0-36.0) g/dl RDW 13.2 (11.0-16.0) % Plt Count 304 (160-400) X10*3/uL MPV 10.0 (9.4-12.4) fL Immature Gran % (Auto) 0.4 (0.0-0.4) % Neut % (Auto) 53.6 (45-73) % Lymph % (Auto) 33.1 (20-40) % [place] % (Auto) 11.3 H (2-11) % Eos % (Auto) 1.1 (0-4) % Baso % (Auto) 0.5 (0-2) % Lymph # (Auto) 1.8 (1.2-4.9) X10*3/uL [place] # (Auto) 0.6 (0.1-1.2) X10*3/uL Eos # (Auto) 0.1 (0.0-0.4) X10*3/uL Baso # (Auto) 0.0 (0.0-0.2) X10*3/uL Abs Immat Gran (auto) 0.02 (0.00-0.03) X10*3/uL Absolute Neuts (auto) 3.0 (2.0-8.3) x10*3/uL Absolute Nucleated RBC 0.000 (0.0-0.012) X10*3/uL Nucleated RBC % (auto) 0.0 (0.0-0.2) /100WBC Sodium 141 (135-145) mmol/L Potassium 3.9 (3.3-5.1) mmol/L Chloride 109 H (96-108) mmol/L Carbon Dioxide 26 (22-29) mmol/L Anion Gap 10 L (12-20) BUN 14 (9-16) mg/dL Creatinine 0.83 (0.5-1.4) mg/dL Estim Creat Clear Calc 147.6 Estimated GFR > 60 Random Glucose 101 (60-115) mg/dL Calcium 8.9 (8.4-10.2) mg/dL Magnesium 2.1 (1.6-2.6) mg/dL Total Bilirubin 0.2 (0.0-1.0) mg/dL Direct Bilirubin < 0.2 (0.0-0.5) mg/dL AST 27 (5-37) U/L ALT 45 H (0-40) U/L Alkaline Phosphatase 65 (39-117) U/L Total Protein 7.2 (6.5-8.0) g/dL Albumin 4.0 (3.5-5.0) g/dL Lipase 14 (8-78) U/L Urine Color Yellow Urine Appearance Clear Urine pH 6.5 (5.0-9.0) Ur Specific [place] 1.020 (1.005-1.025) Urine Protein Negative (Neg-Trace) mg/dL Urine Glucose (UA) Negative (Negative) mg/dL Urine Ketones Negative (Negative) mg/dL Urine Blood Negative (Negative) Urine Nitrite Negative (Negative) Ur Leukocyte Esterase Negative (Negative) Discharge Plan Discharge Clinical Impression: Ventral hernia Patient Disposition: Home, Self-Care Instructions: Ventral Hernia (ED) Prescriptions: No Action azithromycin 500 mg tablet See Rx Instructions PO .COMPLEX Qty: 3 0RF Rx Instructions: take 500 mg today (day 1), then 250 mg for 4 days (days 2-5) acetaminophen [Tylenol] 325 mg tablet 650 mg PO Q6H PRN (Reason: fever or pain) Qty: 10 0RF cyclobenzaprine 10 mg tablet 10 mg PO TID PRN (Reason: muscle spasm) Qty: 10 0RF oxycodone 5 mg tablet 5 mg PO TID PRN (Reason: pain) Qty: 10 0RF oxycodone-acetaminophen [Percocet] 5-325 mg tablet 1 tab PO TID PRN (Reason: pain) Qty: 14 0RF prednisone 20 mg tablet 20 mg PO BID Qty: 10 0RF tamsulosin [Flomax] 0.4 mg capsule 0.4 mg PO DAILY Qty: 5 0RF Referrals: Prabhakar Ornelas MD [Physician] - 03/21/25 Print Language: Maori
[2025-03-15 17:12] VITALS: BP 144/88; PULSE 80; RESP 16; TEMP 36.7; O2SAT 98; BMI 34.4
[2025-03-15 17:29] LABS: MANUAL DIFF FLAG NO
[2025-03-15 17:30] LABS: Basophils Percent Auto 0.5 % (0-2); Eosinophils Absolute Auto 0.1 X10*3/uL (0.0-0.4); Eosinophils Percent Auto 1.1 % (0-4); Hematocrit 41.4 % (42.0-52.0); Hemoglobin 13.8 g/dl (14.0-18.0); Imm Gran Abs Auto 0.02 X10*3/uL (0.00-0.03); Imm Gran Pct Auto 0.4 % (0.0-0.4); Lymphocytes Absolute Auto 1.8 X10*3/uL (1.2-4.9); Lymphocytes Percent Auto 33.1 % (20-40); Mean Corpuscular HGB Conc 33.3 g/dl (31.0-36.0); Mean Corpuscular Hemoglobin 28.3 pg (27.0-33.0); Mean Corpuscular Volume 84.8 fL (80.0-98.0); Monocytes Absolute Auto 0.6 X10*3/uL (0.1-1.2); Monocytes Percent Auto 11.3 % (2-11); Neutrophils Percent Auto 53.6 % (45-73); Platelet Count 304 X10*3/uL (160-400); Red Blood Count 4.88 X10*6/uL (4.60-5.80); Red Cell Distribution Width 13.2 % (11.0-16.0); White Blood Count 5.6 X10*3/uL (4.8-10.8)
[2025-03-15 17:33] LABS: Appearance Urine Clear; Color Urine Yellow; Glucose Urine UA Negative (Negative); Leukocyte Esterase Urine Negative (Negative); Nitrite Urine Negative (Negative); PH 6.5 (5.0-9.0); Urine Blood Negative (Negative); Urine Ketones Negative (Negative); Urine Protein Negative (Neg-Trace)
[2025-03-15 17:45] LABS: Alanine Aminotransferase 45 U/L (0-40); Alkaline Phosphatase 65 U/L (39-117); Anion Gap 10 (12-20); Aspartate Amino Transferase 27 U/L (5-37); Bilirubin Direct < 0.2 mg/dL (0.0-0.5); Bilirubin Total 0.2 mg/dL (0.0-1.0); Blood Urea Nitrogen 14 mg/dL (9-16); Calcium 8.9 mg/dL (8.4-10.2); Carbon Dioxide 26 mmol/L (22-29); Chloride 109 mmol/L (96-108); Creatinine Clr Calc Pharmacy 147.6; Estimated Glomerular Filt Rate > 60; Glucose Random 101 mg/dL (60-115); Lipase 14 U/L (8-78); Magnesium 2.1 mg/dL (1.6-2.6); Potassium 3.9 mmol/L (3.3-5.1); Sodium 141 mmol/L (135-145); Total Protein 7.2 g/dL (6.5-8.0)
[2025-03-15 21:44] VITALS: BP 135/87; PULSE 84; RESP 18; TEMP 36.7; O2SAT 97
--- NOTE | 2025-03-15 23:26 | ED.ABDPAIN ---
HPI - Abdominal Pain General Chief Complaint: Abdominal Pain Stated Complaint: painful stomach mass Time Seen by Provider: 03/15/25 21:44 History of Present Illness HPI narrative: Patient is a 29-year-old male presents today with having a bulge that was found on the right side of the abdomen. It comes and goes. It is not associated with any pain. It is not associated with any nausea vomiting. It gets worse when he lifts an object. It does pushes back. Patient has no complaints currently. No fever no chills. No history of abdominal surgery. Positive previous history of appendicitis which was treated conservatively. History of kidney past. Related Data Previous Rx's ?Medication ?Instructions ?Recorded acetaminophen 325 mg tablet 650 mg (2 x 325 mg) PO Q6H PRN 10/03/20 (Tylenol) fever or pain #10 tabs azithromycin 500 mg tablet See Rx Instructions PO .COMPLEX #3 10/03/20 tabs cyclobenzaprine 10 mg tablet 10 mg PO TID PRN muscle spasm #10 10/03/20 tabs oxycodone 5 mg tablet 5 mg PO TID PRN pain #10 tabs 09/21/21 oxycodone-acetaminophen 5 mg-325 1 tab PO TID PRN pain #14 tabs 09/21/21 mg tablet (Percocet) prednisone 20 mg tablet 20 mg PO BID #10 tabs 09/21/21 tamsulosin 0.4 mg capsule (Flomax) 0.4 mg PO DAILY #5 caps 09/21/21 Allergies Allergy/AdvReac Type Severity Reaction Status Date / Time SEAFOOD Allergy Unknown ANAPHYLAXIS Uncoded 03/15/25 17:17 Review of Systems Review of Systems Positive abdominal bulge Yes all other systems are reviewed and are negative [facility] Past Medical History Attestation statement: The following information was validated with the patient. Social History Social History Advance Directives: No Advance Directives Information Provided: No Do you have a plan to hurt others: No Plan Physical Exam ED Vital Signs: Vital Signs - 24 hr 03/15/25 17:12 03/15/25 21:44 Temperature 98.1 F 98.0 F Pulse Rate 80 84 Respiratory Rate 16 18 Blood Pressure 144/88 H 135/87 Pulse Oximetry 98 97 Oxygen Delivery Method Room Air Room Air BMI result Body Mass Index 34.4 Appearance: Alert. Oriented X3. No acute distress. Eyes: Pupils equal, round and reactive to light. ENT: Pharynx normal. Neck: Normal inspection. Neck supple. No lymph nodes noted. No crepitus CVS: Normal heart rate and rhythm. Pulses normal. Normal S1 and S2 Respiratory: No respiratory distress. Breath sounds normal. No Wheezing. No rales Abdomen: Soft and nontender. No rigidity. No distention. good BS x4 Skin: Skin warm and dry. Normal skin color. Normal skin turgor. Extremities: No lower extremity edema. Neurovascular intact to all extremities. No Lacerations. No Rash Neuro: Oriented X 3. No motor deficit. No sensory deficit. Moving all extermities. No slurred speech Medical Decision Making Medical Decision Making [facility] Narrative: Well-appearing no acute distress. I can not appreciate any mass that was in the abdomen. Patient claims that there was a mass that was on the right side of the umbilicus. Question ventral or umbilical hernia patient claims there was a bulge there and it can be pushed back easily. Patient denies any pain associated with this. It happens when he bears down. Patient is in no distress. Will refer patient to surgery for further evaluation labs are normal electrolytes normal urine is negative no signs of infection. Differential Diagnosis Differential Diagnoses: The differential diagnosis associated with the presentation includes Ventral hernia, umbilical hernia Admission/Observation Consideration of admission/observation: Escalation of care including admission/observation considered Lab Data [facility] Lab Attestation statement: I reviewed the patient's lab results. 03/15/25 17:22 03/15/25 17:22 Labs: Lab Results 03/15/25 03/15/25 Range/Units 17:22 17:23 WBC 5.6 (4.8-10.8) X10*3/uL RBC 4.88 (4.60-5.80) X10*6/uL Hgb 13.8 L (14.0-18.0) g/dl Hct 41.4 L (42.0-52.0) % MCV 84.8 (80.0-98.0) fL MCH 28.3 (27.0-33.0) pg MCHC 33.3 (31.0-36.0) g/dl RDW 13.2 (11.0-16.0) % Plt Count 304 (160-400) X10*3/uL MPV 10.0 (9.4-12.4) fL Immature Gran % (Auto) 0.4 (0.0-0.4) % Neut % (Auto) 53.6 (45-73) % Lymph % (Auto) 33.1 (20-40) % [place] % (Auto) 11.3 H (2-11) % Eos % (Auto) 1.1 (0-4) % Baso % (Auto) 0.5 (0-2) % Lymph # (Auto) 1.8 (1.2-4.9) X10*3/uL [place] # (Auto) 0.6 (0.1-1.2) X10*3/uL Eos # (Auto) 0.1 (0.0-0.4) X10*3/uL Baso # (Auto) 0.0 (0.0-0.2) X10*3/uL Abs Immat Gran (auto) 0.02 (0.00-0.03) X10*3/uL Absolute Neuts (auto) 3.0 (2.0-8.3) x10*3/uL Absolute Nucleated RBC 0.000 (0.0-0.012) X10*3/uL Nucleated RBC % (auto) 0.0 (0.0-0.2) /100WBC Sodium 141 (135-145) mmol/L Potassium 3.9 (3.3-5.1) mmol/L Chloride 109 H (96-108) mmol/L Carbon Dioxide 26 (22-29) mmol/L Anion Gap 10 L (12-20) BUN 14 (9-16) mg/dL Creatinine 0.83 (0.5-1.4) mg/dL Estim Creat Clear Calc 147.6 Estimated GFR > 60 Random Glucose 101 (60-115) mg/dL Calcium 8.9 (8.4-10.2) mg/dL Magnesium 2.1 (1.6-2.6) mg/dL Total Bilirubin 0.2 (0.0-1.0) mg/dL Direct Bilirubin < 0.2 (0.0-0.5) mg/dL AST 27 (5-37) U/L ALT 45 H (0-40) U/L Alkaline Phosphatase 65 (39-117) U/L Total Protein 7.2 (6.5-8.0) g/dL Albumin 4.0 (3.5-5.0) g/dL Lipase 14 (8-78) U/L Urine Color Yellow Urine Appearance Clear Urine pH 6.5 (5.0-9.0) Ur Specific [place] 1.020 (1.005-1.025) Urine Protein Negative (Neg-Trace) mg/dL Urine Glucose (UA) Negative (Negative) mg/dL Urine Ketones Negative (Negative) mg/dL Urine Blood Negative (Negative) Urine Nitrite Negative (Negative) Ur Leukocyte Esterase Negative (Negative) Independent Historian Clinical information obtained from an independent historian. History obtained from or confirmed by: Friend Discharge Plan Discharge Clinical Impression: Ventral hernia Patient Disposition: Home, Self-Care Instructions: Ventral Hernia (ED) Prescriptions: No Action azithromycin 500 mg tablet See Rx Instructions PO .COMPLEX Qty: 3 0RF Rx Instructions: take 500 mg today (day 1), then 250 mg for 4 days (days 2-5) acetaminophen [Tylenol] 325 mg tablet 650 mg PO Q6H PRN (Reason: fever or pain) Qty: 10 0RF cyclobenzaprine 10 mg tablet 10 mg PO TID PRN (Reason: muscle spasm) Qty: 10 0RF oxycodone 5 mg tablet 5 mg PO TID PRN (Reason: pain) Qty: 10 0RF oxycodone-acetaminophen [Percocet] 5-325 mg tablet 1 tab PO TID PRN (Reason: pain) Qty: 14 0RF prednisone 20 mg tablet 20 mg PO BID Qty: 10 0RF tamsulosin [Flomax] 0.4 mg capsule 0.4 mg PO DAILY Qty: 5 0RF Referrals: Prabhakar Ornelas MD [Physician] - 03/21/25 Print Language: Azeri
[2025-03-16] VITALS: BP 136/99; PULSE 78; RESP 16; TEMP 36.7; O2SAT 97
== END 2025-03-16 00:05 | disposition home or self-care (01) ==
PROVIDERS: Physician Assistant; Emergency Provider Emergency Medicine Emergency Medical Services; PCP Internal Medicine
DX: K43.9 Ventral hernia without obstruction or gangrene (principal)
CPT/HCPCS: 36415; 80048; 80076; 81003; 83690; 83735; 85025; 99283; 99284

== ENCOUNTER 2025-03-20 14:49 | Outpatient (AMB) | payer OTHER, SELFPAY ==
--- NOTE | 2025-03-20 14:49 | MHC.OFFVIS ---
Vital Signs 03/20/25 14:58 Height 5 ft 7 in Weight 221 lb BMI 34.6 BP 135/85 Blood Pressure Location Rt brachial Position Sitting Pulse 89 Intake Visit Reasons: ventral hernia Intake Note: Patient seen at [facility] for bump on Rt side of abdomen. 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 Patient c/o: bulge when laying down. Tender to touch at times. Secondary Connector Armature Required: No Accompanied by: girlfriend Nikki Allergies SEAFOOD Allergy (Unknown, Uncoded 03/20/25 14:55) ANAPHYLAXIS Medication List - Last Reconciled 03/20/25 by Yasir Mariee MD acetaminophen (Tylenol) 650 mg (2 x 325 mg) PO Q6H PRN HPI HPI ventral hernia: Details: 29-year-old male referred for a hernia. He says he has felt a lump on the upper part of his abdomen to the right of the midline for about a week. He says that he had been uncomfortable with some pain with exertion He also has a smaller lump on this umbilicus which she has had for much longer. He denies GI complaints He says he is healthy overall. [facility] Medical History (Updated 03/20/25 @ 15:12 by Yasir Mariee MD) Epigastric hernia Umbilical hernia Social History Alcohol intake: never Patient Tobacco Use Status: Never used Tobacco Substance Use Type: Marijuana Review of Systems Const Denies chills and Denies fever(s) Card Denies chest pain, Denies dyspnea and Denies dyspnea on exertion Resp Denies cough, Denies dyspnea and Denies dyspnea on exertion GI Denies hematochezia and Denies change in bowel habits Denies hematuria and Denies difficulty urinating Musc Denies back pain and Denies limited range of motion Neuro Denies focal weakness and Denies convulsions Psych Denies depression and Denies mood swings Physical Exam Const General: comfortable and no acute distress Nutritional Appearance: overweight Orientation/consciousness: patient oriented x3 Neck Neck: Yes no lymphadenopathy Resp Auscultation: clear to auscultation bilaterally Cardio Rhythm: regular rhythm GI Other: Vague epigastric hernia to the right of the midline, about 3 cm, reducible Small umbilical hernia about 1.5 cm, reducible Palpation (GI): Soft to palpation, nontender and no guarding Neuro General: patient oriented x3 Assessment & Plan Assessment & Plan (1) Epigastric hernia: Code(s): K43.9 - Ventral hernia without obstruction or gangrene Category: Medical Plan: Examination does reveal 2 hernias. There is 1 hernia in the epigastric area to the right of the midline. This is reducible. However, the defect is vague and difficult to define. I am to order for a CAT scan of the abdomen without contrast to define this hernia. He also has a small hernia in the umbilicus. I did have a long discussion with him the technique of repair of the epigastric hernia as well as the umbilical hernia with possible mesh placement. I reviewed the risks including but not limited to bleeding, bowel injury, recurrence and postop pain, as well as the benefits and alternatives. I also explained to him what to expect postoperatively. He wants to proceed with repair of both the epigastric hernia as well as the umbilical hernia. (2) Umbilical hernia: Code(s): K42.9 - Umbilical hernia without obstruction or gangrene Category: Medical Plan: He has an umbilical hernia and epigastric hernia. This will be repaired with possible mesh placement as above. He understands the plan well. His significant other was with him during the visit. Medications: Discontinued cyclobenzaprine Discontinued Reason: Patient Completed Course 10 mg PO TID PRN 10 tabs 0RF muscle spasm azithromycin Discontinued Reason: Patient Completed Course take 500 mg today (day 1), then 250 mg for 4 days (days 2-5) 3 tabs 0RF oxycodone-acetaminophen 5-325 mg (Percocet) Discontinued Reason: Patient Refused 1 tab PO TID PRN 14 tabs 0RF pain prednisone Discontinued Reason: Patient Completed Course 20 mg PO BID 10 tabs 0RF tamsulosin (Flomax) Discontinued Reason: Patient Completed Course 0.4 mg PO DAILY 5 caps 0RF oxycodone Discontinued Reason: Patient Completed Course 5 mg PO TID PRN 10 tabs 0RF pain Coding Level of Care Code New Pt Level 3 (68449) Diagnoses Epigastric hernia K43.9 Umbilical hernia K42.9
[2025-03-20 14:58] VITALS: BP 135/85; PULSE 89; BMI 34.6
== END 2025-03-20 15:13 | disposition home or self-care (01) ==
LOC: HO.HGS 14:49
PROVIDERS: PCP Internal Medicine; Visit Provider Surgery
DX: K43.9 Ventral hernia without obstruction or gangrene (principal); K42.9 Umbilical hernia without obstruction or gangrene
CPT/HCPCS: 99203

== ENCOUNTER → 2025-03-20 14:49 | Outpatient (BNVA) | payer OTHER, SELFPAY | PROVIDERS: PCP Internal Medicine; Visit Provider Surgery | DX: K43.9 Ventral hernia without obstruction or gangrene (principal); K42.9 Umbilical hernia without obstruction or gangrene | CPT/HCPCS: 99202 ==

== ENCOUNTER 2025-04-06 07:39 | Outpatient (AMB) | payer OTHER, SELFPAY ==
--- NOTE | 2025-04-05 16:41 | AM.OFFVISMDC ---
Intake Intake Visit Reasons: Hernia Allergies SEAFOOD Allergy (Unknown, Uncoded 03/20/25 14:55) ANAPHYLAXIS PFS Medical History (Updated 03/20/25 @ 15:12 by Yasir Mariee MD) Epigastric hernia Umbilical hernia Social History Alcohol intake: never Patient Tobacco Use Status: Never used Tobacco Substance Use Type: Marijuana Coding
--- NOTE | 2025-04-06 07:55 | A.OFFPC_ITS ---
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 He reports in late February, he was working and he was lifting and throwing somewhat heavy objects where he felt a bulge in the right lower quadrant and epigastrium. The area was painful rating this as an 8/10 lasting about 10 minutes. It is reducible. He has normal bowel function. No history of abdominal surgeries. In the ED, he was evaluated and hematology studies were unremarkable except for a stable normocytic anemia. Renal function and electrolyte levels were normal. He has not yet had a CT scan performed but has 1 scheduled for 04/24. He was seen in the general surgery office on 03/20 and is being considered for possible surgery. We did discuss that strengthening the abdominal muscles may also be helpful for hernia management. [facility] Medical History (Updated 04/06/25 @ 08:16 by TESS Mcguire) Epigastric hernia Umbilical hernia Social History Alcohol intake: never Patient Tobacco Use Status: Never used Tobacco Substance Use Type: Marijuana Review of Systems Const All systems reviewed & are unremarkable except as noted in HPI and below Physical exam (Primary Care) Vital Signs: Last Vital Signs Temp 98.0 F 04/06/25 07:58 Pulse 80 04/06/25 07:58 Resp 18 04/06/25 07:58 BP 144/90 H 04/06/25 07:58 Pulse Ox 809 H 04/06/25 07:58 Oxygen Delivery Method Room Air 04/06/25 07:58 BMI result Body Mass Index 34.9 Tobacco/Smoking Status: Tobacco use Status Patient Tobacco Use Status Never used Tobacco 04/06/25 07:56 Const Other: Constitutional - Awake and Alert, No apparent distress Eyes - PERRL Respiratory - Normal lung expansion, Normal respiratory effort, No respiratory distress, CTA bilaterally Gastrointestinal - NT / ND; +BS; No rebound or guarding. 3cm bulge palpated to the right of midline redicuble and nontender Extremities - no calf tenderness bilaterally, no swelling Skin - Warm/Dry Neurological - Alert & oriented x3 Coding Level of Care Code New Pt Level 3 (77425) Diagnoses Epigastric hernia K43.9 Umbilical hernia K42.9 Obesity (BMI 30.0-34.9) E66.811 Assessment & Plan Assessment & Plan (1) Epigastric hernia: Code(s): K43.9 - Ventral hernia without obstruction or gangrene Category: Medical Plan: Referral placed to general surgery. ER and surgeon note reviewed. Follow up for CT scan as scheduled. (2) Umbilical hernia: Code(s): K42.9 - Umbilical hernia without obstruction or gangrene Category: Medical Plan: Referral placed to general surgery. ER and surgeon note reviewed. Follow up for CT scan as scheduled. tylenol as needed (3) Obesity (BMI 30.0-34.9): Code(s): E66.811 - Obesity, class 1 Category: Medical Plan: Weight loss efforts discussed. Recommend healthy diet rich in protein fruits and vegetable. Limit carbohydrates and avoid highly processed foods. Recommend re gular cardio and resistance exercises Plan Referral placed to general surgery. Proceed with CT as scheduled
[2025-04-06 07:58] VITALS: BP 144/90; PULSE 80; RESP 18; TEMP 36.7; O2SAT 809; BMI 34.9
== END 2025-04-06 08:11 | disposition home or self-care (01) ==
LOC: HO.HMCHD 07:40
PROVIDERS: PCP Physician Assistant; Visit Provider Physician Assistant
DX: K43.9 Ventral hernia without obstruction or gangrene (principal); K42.9 Umbilical hernia without obstruction or gangrene; E66.811 Obesity, class 1

== ENCOUNTER → 2025-04-06 07:39 | Outpatient (BNVA) | payer OTHER, SELFPAY | PROVIDERS: PCP Physician Assistant; Visit Provider Physician Assistant | DX: K43.9 Ventral hernia without obstruction or gangrene (principal); K42.9 Umbilical hernia without obstruction or gangrene; E66.811 Obesity, class 1; Z68.34 Body mass index [BMI] 34.0-34.9, adult | CPT/HCPCS: 99202 ==

== ENCOUNTER 2025-04-26 16:39 | Outpatient (REF) | payer OTHER, SELFPAY ==
--- NOTE | ~2025-04-26 | CT_ITS ---
CLINICAL HISTORY: K43.9 - Ventral hernia without obstruction or gangrene --- Additional Notes or Spec ial Instructions: No contrast CT abdomen and pelvis without contrast Comparison: CT/REG/FL/SR - CT ABDOMEN PELVIS WO CON - 06/15/22 22:49 EDT Findings: No consolidation or effusion. The liver, gallbladder, spleen, adrenal glands and pancreas are unremarkable. No right renal calculus. There are 4 nonobstructing left renal calculi. The largest measures up to 4 mm. The bladder is partially distended without focal abnormality. There is a fat containing ventral hernia just above the umbilicus which extends rightward. The fascial defect measures 2 cm, axial image 45. No bowel obstruction, free air, free fluid, abscess or significant adenopathy. Incidental retroaortic left renal vein. No acute osseous finding. Impression: There is a fat containing ventral hernia with a fascial defect measuring 2 cm. Nonobstructing left renal calculi. This document has been electronically signed by: Paolo Hollis MD on 04/27/2025 11:28:52
== END 2025-04-26 16:40 | disposition home or self-care (01) ==
LOC: HO.CT 16:39
PROVIDERS: PCP Physician Assistant; Visit Provider Surgery
DX: K43.9 Ventral hernia without obstruction or gangrene (principal); K42.9 Umbilical hernia without obstruction or gangrene
CPT/HCPCS: 74176

== ENCOUNTER → 2025-04-26 16:43 | Outpatient (BNV) | payer OTHER, SELFPAY | PROVIDERS: PCP Physician Assistant; Visit Provider Radiology Vascular & Interventional Radiology | DX: K43.9 Ventral hernia without obstruction or gangrene (principal); N20.0 Calculus of kidney | CPT/HCPCS: 74176 ==

== ENCOUNTER 2025-05-03 09:54 | Outpatient (AMB) | payer OTHER, SELFPAY ==
--- NOTE | 2025-05-03 09:55 | A.OFFVIS_ITS ---
Vital Signs 05/03/25 09:56 Height 5 ft 7 in Weight 223 lb BMI 34.9 BP 134/78 Blood Pressure Location Rt brachial Position Sitting Pulse 80 Intake Visit Reasons: Discuss CT abd pelvis~ 04-26-25 Intake Note: Patient here to discuss abdomen/ pelvis CT on 04-26-2025. Patient c/o: no concerns. Diversity Manager Required: No Accompanied by: Spouse Allergies SEAFOOD Allergy (Unknown, Uncoded 05/03/25 09:56) ANAPHYLAXIS Medication List - Last Reconciled 05/03/25 by Yasir Mariee MD acetaminophen (Tylenol) 650 mg (2 x 325 mg) PO Q6H PRN HPI HPI Discuss CT abd pelvis~ 04-26-25: Details: 29-year-old male referred for a hernia. He says he has felt a lump on the upper part of his abdomen to the right of the midline for about a week. He says that he had been uncomfortable with some pain with exertion. I had seen him in February, and he stated that he thought he had an umbilical hernia as well. I therefore sent him for a CAT scan. He is here to discuss the findings. He denies GI complaints He says he is healthy overall. [facility] Medical History Epigastric hernia Umbilical hernia Social History Alcohol intake: never Patient Tobacco Use Status: Never used Tobacco Substance Use Type: Marijuana Review of Systems Const Denies chills and Denies fever(s) Card Denies chest pain, Denies dyspnea and Denies dyspnea on exertion Resp Denies cough, Denies dyspnea and Denies dyspnea on exertion GI Denies hematochezia and Denies change in bowel habits Denies hematuria and Denies difficulty urinating Musc Denies back pain and Denies limited range of motion Neuro Denies focal weakness and Denies convulsions Psych Denies depression and Denies mood swings Physical Exam Vital Signs: Last Vital Signs Pulse 80 05/03/25 09:56 BP 134/78 05/03/25 09:56 BMI result Body Mass Index 34.9 Const General: comfortable and no acute distress Orientation/consciousness: patient oriented x3 Neck Neck: Yes no lymphadenopathy Resp Auscultation: clear to auscultation bilaterally Cardio Rhythm: regular rhythm GI Other: Hernia in the epigastric area just above the umbilicus, about 2.5 cm, reducible Palpation (GI): Soft to palpation, nontender and no guarding Neuro General: patient oriented x3 Assessment & Plan Assessment & Plan (1) Epigastric hernia: Code(s): K43.9 - Ventral hernia without obstruction or gangrene Category: Medical Plan: I have reviewed his CAT scan and this shows an epigastric hernia just above the umbilicus, with a defect about 2.3 cm wide. This is fat containing and reducible. I do not see any umbilical hernia at all I therefore reviewed with him the technique of repair of the epigastric hernia with possible mesh. I explained the risks including but not limited to bleeding, infections, recurrence, injury to bowel, inherent risks of anesthesia, as well as the benefits and alternatives. I explained to him what to expect postoperatively He understands and wants to proceed. His was with him during the visit. Coding Level of Care Code Est Pt Level 3 (52875) Diagnoses Epigastric hernia K43.9
[2025-05-03 09:56] VITALS: BP 134/78; PULSE 80; BMI 34.9
== END 2025-05-03 10:11 | disposition home or self-care (01) ==
LOC: HO.HGS 09:54
PROVIDERS: PCP Physician Assistant; Visit Provider Surgery
DX: K43.9 Ventral hernia without obstruction or gangrene (principal)
CPT/HCPCS: 99213

== ENCOUNTER → 2025-05-03 09:54 | Outpatient (BNVA) | payer OTHER, SELFPAY | PROVIDERS: PCP Physician Assistant; Visit Provider Surgery | DX: K43.9 Ventral hernia without obstruction or gangrene (principal) | CPT/HCPCS: 99212 ==

== ENCOUNTER 2025-06-05 07:34 | Day surgery (SDC) | payer OTHER, SELFPAY ==
[2025-06-01 08:05] VITALS: BMI 34.9
--- NOTE | 2025-06-04 10:23 | HO.ANESPROP2 ---
Documented by User: Lakeisha Dhillon NP 06/04/25 10:27 HPI - Anesthesia Eval Consult details Narrative: 29yo M for Hernia Epigastric Reducible with possible mesh PMFSH Active Problems Active Problems: All Active Problems Obesity (BMI 30.0-34.9) (Acute) Epigastric hernia (Acute) Umbilical hernia (Acute) Past Medical History Medical History Epigastric hernia Umbilical hernia Social History Social History Alcohol intake: never Patient Tobacco Use Status: Never used Tobacco Substance Use Type: Marijuana Have you been hit, kicked, punched, or otherwise hurt by someone within the past year? If so, by whom?: No Are you DNR?: No Advance Directives: No Advance Directives Information Provided: Yes Meds Allergies Allergy/AdvReac Type Severity Reaction Status Date / Time SEAFOOD Allergy Unknown ANAPHYLAXIS Uncoded 05/03/25 09:56 Exam Height,Weight and Vital Signs: Height 5 ft 7 in Weight 101.151 kg Pertinent Lab Results Pertinent Lab Results: Laboratory Tests 03/15/25 17:22 WBC 5.6 Hgb 13.8 L Hct 41.4 L Plt Count 304 Sodium 141 Potassium 3.9 Chloride 109 H Carbon Dioxide 26 BUN 14 Creatinine 0.83 Assessment and Plan Assessment Anesthesia Assessment: Chart Reviewed Documented by User: Rodrigo Duvall MD 06/05/25 14:33 PMFSH Past Medical History Medical History Epigastric hernia Umbilical hernia Family History Family history of problems with anesthesia: No Surgical History History of Problems with Anesthesia: No Social History Social History Alcohol intake: never Patient Tobacco Use Status: Never used Tobacco Substance Use Type: Marijuana Have you been hit, kicked, punched, or otherwise hurt by someone within the past year? If so, by whom?: No Are you DNR?: No Advance Directives: No Advance Directives Information Provided: Yes Meds Allergies Allergy/AdvReac Type Severity Reaction Status Date / Time SEAFOOD Allergy Unknown ANAPHYLAXIS Uncoded 05/03/25 09:56 Exam Airway Mallampati Class: III TM Dist: >3cm Neck ROM: Full Assessment and Plan Assessment Anesthesia Assessment: Anesthesia Plan Discussed Final Anesthetic Review Family History of Problems with Anesthesia: No History of Problems with Anesthesia: No NPO: Yes ASA Class: II Final Preanesthetic Review: No Changes in Pt Med Stat, Meds/Allgs Chart Reviewed, Consent Obtained/Reviewed and Anes Risks/Benef Reviewed Patient Risk: Intermediate Procedure Risk: Low Anesthetic Plan Anesthetic Plan: GA Disposition: Standard PACU
[2025-06-05] VITALS (10 sets, daily range): BP systolic 119–143; BP diastolic 68–95; PULSE 72–91; RESP 16–18; TEMP 36.4–36.9; O2SAT 91–100; BMI 35.1
[2025-06-05] MEDS: Lactated Ringers 1,000 ML 100 ML IVCONT (08:10)
--- NOTE | 2025-06-05 09:43 | MHC.SHP ---
Pre-Procedural Eval Section A - 24 Hr Update-Section A only Date of Service: 06/05/25 Section B - Complete if H&P > 30 days Chief Complaint: Ventral hernia without obstruction or gangrene Details of Present Illness: Has a nonreducible supraumbilical hernia Relevant Social History: None Present Medications: see Short Stay Collaborative assessment Medical History: Significant History (Obesity) Allergies: Allergies Allergy/AdvReac Type Severity Reaction Status Date / Time SEAFOOD Allergy Unknown ANAPHYLAXIS Uncoded 05/03/25 09:56 Review of Systems Sugical H&P ROS: Negative: Constitution, Cardiovascular and Respiratory Exam Surgical H&P Exam: Normal: Heart and Normal: Lungs and Significant Findings: Abdomen (Supraumbilical nonreducible hernia) Plan Diagnosis/Plan: Unchanged I have reviewed the history and physical and performed a pertinent physical examination on my patient. No changes have occurred unless specified. Time Spent With Patient Time: Total time managing care of this patient today ____ minutes.
--- NOTE | 2025-06-05 10:40 | W.PM.OPN ---
Operative Note Operative Note Date of Service: 06/05/25 Narrative: Preop diagnosis: Epigastric hernia, non reducible Postop diagnosis: The same Procedure: Repair of epigastric hernia with Phasix mesh Surgeon: Yasir Mariee MD social science research assistant: TESS Pope The patient is a 29-year-old male with a non reducible hernia on the epigastric area above the umbilicus. This was noted in his CAT scan as well. He understood the technique of the planned procedure as was the risks, benefits, and alternatives. He was brought to the operating room. He was placed supine under general anesthesia via laryngeal mask airway. The abdomen was prepped and draped in the usual sterile fashion. A surgical time-out was done. The patient received cefazolin 2 g IV preoperatively I infiltrated the planned line of incision with lidocaine 1%. I made the incision in the skin overlying the hernia longitudinally the blade 15. This carried down with electrocautery through the full-thickness of the skin and subcutaneous fat. The patient was morbidly obese so we had to go through thick amount of subcutaneous fat before we are able to visualize the hernia. The hernia was fat containing. I sharply dissected this down to the fascial defect. I used Metzenbaum scissors to divide adhesions tethering the hernia contents of the fascial edge until was able to completely reduce the hernia. Again, the hernia was fat containing with a any bowel loops. The fascial defect was about 2 cm in diameter I positioned a small-sized Phasix mesh underneath the fascial defect and flattened this. I secured the Prolene straps of the mesh to the fascial edge on both sides with Prolene 2 sutures I trimmed the Prolene straps. I closed the the fascia over the mesh with a [id number] Maxon 1 stitch I irrigated. I then reapposed the subcutaneous layer with Polysorb 3-0 sutures. Skin closure was achieved with Polysorb 4-0 subcuticular running stitch The incision was then infiltrated with Marcaine 0.5% for postop analgesia. Dressings were applied. The procedure was completed The patient tolerated the procedure well. There were no immediate complications. Initial and final counts of sponges and instruments were correct. Estimated blood loss was does not 10 cc The patient was extubated without difficulty and transferred to the recovery room with stable vital signs.
== END 2025-06-05 13:01 | disposition home or self-care (01) ==
PROVIDERS: PCP Physician Assistant; Visit Provider Surgery
PROC: (CPT 49591; principal; 2025-06-05 10:40)
DX: K43.9 Ventral hernia without obstruction or gangrene (principal); E66.01 Morbid (severe) obesity due to excess calories; Z68.34 Body mass index [BMI] 34.0-34.9, adult; Z79.899 Other long term (current) drug therapy; Z91.013 Allergy to seafood
CPT/HCPCS: 49591; C1781; J0131; J0690; J1100; J2003; J2250; J2405; J2704; J2795; J3010

== ENCOUNTER → 2025-06-05 07:34 | Outpatient (BNV) | payer OTHER, SELFPAY | PROVIDERS: PCP Physician Assistant; Visit Provider Surgery | DX: K43.9 Ventral hernia without obstruction or gangrene (principal) | CPT/HCPCS: 49592 ==

== ENCOUNTER 2025-06-18 14:16 | Outpatient (AMB) | payer OTHER, SELFPAY ==
--- NOTE | 2025-06-18 14:17 | A.OFFVIS_ITS ---
Intake Visit Reasons: s/p epigastric hernia poss.mesh Intake Note: Patient here s/p repair of epigastric hernia with Phasix mesh. Patient c/o: sore when bending to tie shoes, climbing stairs can irritate abdomen area along incision. Taking Tylenol or ibuprofen as needed. Surgery: 06-05-2025 Legal Transcriptionist Required: No Accompanied by: Self / Same As Patient Allergies SEAFOOD Allergy (Unknown, Uncoded 06/18/25 14:24) ANAPHYLAXIS HPI HPI s/p epigastric hernia poss.mesh: Details: Overall doing well. Has some pain with ambulation specifically bending over to tie his shoes and with going upstairs. States this is improving each day. Denies nausea or vomiting, fever, chills. Appetite and bowel function are at baseline. No longer requiring pain medication. His work does require heavy lifting [facility] Medical History (Updated 06/15/25 @ 14:02 by ALF Doll) Epigastric hernia (06/05/25) Epigastric hernia Umbilical hernia Social History Alcohol intake: never Patient Tobacco Use Status: Never used Tobacco Substance Use Type: Marijuana Physical Exam Const General: comfortable and no acute distress Orientation/consciousness: patient oriented x3 Resp Effort & Inspection: normal respiratory effort and able to speak in complete sentences GI Other: Hernia repair site appears to be healing well, no discharge. Very mildly tender to palpation. Some mild induration below incision site. Inspection: No distended Palpation (GI): Soft to palpation, not firm, Tenderness to palpation present (GI) (Mildly tender at incision site), no guarding and not rigid Neuro General: patient oriented x3 Assessment & Plan Assessment & Plan (1) S/P umbilical hernia repair, follow-up exam: Code(s): Z09 - Encounter for follow-up examination after completed treatment for conditions other than malignant neoplasm Category: Medical Plan 30-year-old male s/p epigastric hernia repair with mesh on 06/05/2025 return to the office for routine 2 week follow-up. Patient is doing well. He is experiencing some pain with ambulation, this is expected at this stage. I reassured him that this should improve with time. Appetite and bowel function at baseline. He denies nausea or vomiting, fever, chills. On exam his abdomen is soft and benign. The incision site appears to be healing well there was no concern for infection at this time. We will continue with activity restric tions, no heavy lifting greater than 15-20 lb for the next 2 weeks. Additionally I recommended that he can shower, however I recommended that he do not submerge his incision in any water. Patient will return in 2 weeks for 1 month postop visit. He can return sooner with any concerns Coding Level of Care Code Est Pt Level 3 (15719) Diagnoses S/P umbilical hernia repair, follow-up exam Z09
== END 2025-06-18 14:34 | disposition home or self-care (01) ==
LOC: HO.HGS 14:16
PROVIDERS: PCP Physician Assistant
DX: K43.9 Ventral hernia without obstruction or gangrene (principal)
CPT/HCPCS: 99213

== ENCOUNTER → 2025-06-18 14:16 | Outpatient (BNVA) | payer OTHER, SELFPAY | PROVIDERS: PCP Physician Assistant | DX: Z09 Encounter for follow-up examination after completed treatment for conditions other than malignant neoplasm (principal); Z98.890 Other specified postprocedural states | CPT/HCPCS: 99212 ==

== ENCOUNTER 2025-07-02 12:45 | Outpatient (AMB) | payer OTHER, SELFPAY ==
--- NOTE | 2025-07-02 12:50 | A.OFFVIS_ITS ---
Vital Signs 3 07/02/25 12:55 Weight 228 lb BP 140/86 H Blood Pressure Location Rt brachial Position Sitting Pulse 88 Intake Visit Reasons: s/p epigastric hernia poss.mesh Intake Note: Patient follow up for s/p epigastric hernia. Patient cc: no concerns. Reports incisions healed well. No longer taking rx pain meds. 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 Only pain when bending over. Denies fevers or chills. Denies drainage from incision site, or surrounding redness. States appetite is at baseline, bowel function is improved since before surgery, had frequent loose, watery stools now having more formed stools. [facility] Medical History (Updated 06/15/25 @ 14:02 by ALF Doll) Epigastric hernia (06/05/25) Epigastric hernia Umbilical hernia Surgical History (Updated 07/02/25 @ 08:47 by Nicki Amaral) Hx of hernia repair Social History Alcohol intake: never Patient Tobacco Use Status: Never used Tobacco Substance Use Type: Marijuana Review of Systems Const All systems reviewed & are unremarkable except as noted in HPI and below Physical Exam Vital Signs: Last Vital Signs Pulse 88 07/02/25 12:55 BP 140/86 H 07/02/25 12:55 Const General: comfortable and no acute distress Orientation/consciousness: patient oriented x3 GI Other: Ventral hernia repair site superior to umbilicus. Intact, no erythema, no fluid collection, nontender. Very mild induration deep to the incision. No recurrence with Valsalva Inspection: No distended Palpation (GI): Soft to palpation, nontender, no guarding and not rigid Abdomen image: 2 1. Neuro General: patient oriented x3 Assessment & Plan Assessment & Plan (1) S/P umbilical hernia repair, follow-up exam: Code(s): Z09 - Encounter for follow-up examination after completed treatment for conditions other than malignant neoplasm Category: Surgical Plan 30-year-old male s/p epigastric hernia repair with mesh on 06/05/2025 return to the office for routine one-month follow-up. Patient is doing well. He is experiencing some pain with bending over this is expected at this stage. I reassured him that this should improve with time. Appetite and bowel function at baseline, even improved since before the surgery he was having frequent watery stools.. He denies nausea or vomiting, fever, chills. On exam his abdomen is soft and benign. The incision site appears to be healing well there was no concern for infection at this time. We will continue with activity restrictions, no heavy lifting greater than 15-20 lb for the next 2 weeks given his job has heavy lifting requirements. He does not need to follow-up routinely, He can return sooner with any concerns Coding Level of Care Code Est Pt Level 3 (42217) Diagnoses S/P umbilical hernia repair, follow-up exam Z09
[2025-07-02 12:55] VITALS: BP 140/86; PULSE 88
== END 2025-07-02 13:06 | disposition home or self-care (01) ==
LOC: HO.HGS 12:45
PROVIDERS: PCP Physician Assistant
DX: K43.9 Ventral hernia without obstruction or gangrene (principal)
CPT/HCPCS: 99213

== ENCOUNTER → 2025-07-02 12:45 | Outpatient (BNVA) | payer OTHER, SELFPAY | PROVIDERS: PCP Physician Assistant | DX: Z09 Encounter for follow-up examination after completed treatment for conditions other than malignant neoplasm (principal); Z87.19 Personal history of other diseases of the digestive system | CPT/HCPCS: 99212 ==